=== PATIENT | male | born 1945 | race Caucasian/White ===

== ENCOUNTER 2023-11-09 11:20 | Outpatient (CLI) | payer OTHER, SELFPAY ==
[2023-11-09 11:36] VITALS: PULSE 78; RESP 18; O2SAT 99
[2023-11-09] MEDS: albuterol 2.5 mg/3 mL Neb INHALATION (11:36)
[2023-11-09 11:40] VITALS: PULSE 84
== END 2023-11-09 11:21 | disposition home or self-care (01) ==
PROVIDERS: Visit Provider Nurse Practitioner Family
DX: R06.02 Shortness of breath (principal)
CPT/HCPCS: 94060; J7613